=== PATIENT | male | born 1955 | race Caucasian/White ===

== ENCOUNTER 2017-09-19 06:24 | Observation (INO) ==
[2017-09-19] MEDS ORDERED: NS 1,000 ML IV ONE (06:31)
[2017-09-19] MEDS: SALINE FLUSH 10ml SYRINGE IVF PRN ×3 (06:40→08:52)
--- NOTE | 2017-09-19 06:40 | Emergency Department Report ---
General Adult HPI - General Stated complaint: poss kidney stones Time Seen by Provider: 09/19/17 06:30 Source: patient, family Mode of arrival: ambulatory Limitations: no limitations - History of Present Illness HPI narrative: 62-year-old male presents to the emergency department with a chief complaint of right sided lower abdominal discomfort. Patient noted onset of symptoms awakening him in the night. Patient has a history of multiple kidney stones in the past with similar symptoms. Patient states this feels exactly like his prior kidney stones. Patient describes his pain as severe. Pain is sharp. No radiation. He does not note any exacerbating or remitting factors. No other complaints or associated symptoms. He was at home when the symptoms began. Symptoms have been persistent in nature since onset. Denies trauma, travel, poorly prepared food, recent antibiotic use. - Related Data Home Medications Medication Instructions Recorded Confirmed Finasteride 5 mg PO DAILY #0 04/24/12 09/19/17 Aspirin 1 tab PO HS 09/19/17 09/19/17 Terazosin [Hytrin] 0 mg PO HS 09/19/17 09/19/17 Allergies Allergy/AdvReac Type Severity Reaction Status Date / Time caffeine Allergy Unknown Verified 09/19/17 06:50 codeine Allergy Unknown RASH Verified 09/19/17 06:50 morphine Allergy Unknown HALLUCINATI Verified 09/19/17 06:50 ONS NARCOTICS Allergy Unknown HALLUCINATI Uncoded 09/19/17 06:50 ONS Review of Systems Constitutional: Denies: fever, chills Eyes: Denies: eye pain, vision change ENT: Denies: ear pain, throat pain Cardiovascular: Denies: chest pain, palpitations Respiratory: Denies: cough, dyspnea Gastrointestinal: Reports: abdominal pain, nausea, vomiting (non-bloody). Denies: diarrhea Genitourinary: Denies: urgency, dysuria Musculoskeletal: Denies: back pain, arthralgia Integumentary: Denies: erythema, rash Neurological: Denies: headache, numbness Psychiatric: Denies: anxiety, depression Endocrine: Denies: fatigue, heat or cold intolerance Hematological/Lymphatic: Denies: easy bleeding, easy bruising Allergic/Immunologic: Denies: facial swelling, urticaria PFSH Patient Stated Medical History Hypertension Yes Valvular Heart Disease Yes Hx Benign Prostatic Yes Hyperplasia Hx Kidney Stones Yes Surgical History: Lithotripsy Family History: Reviewed and noncontributory. - Social History Smoking status: Never smoker Substance use type: does not use Alcohol intake frequency: does not drink Physical Exam - Limitations Limitations: no limitations - General General appearance: alert, in distress (Mild distress secondary to pain. ) - Normal Exams: Head:: Normocephalic without trauma Eyes:: Pupils are PERRLA w/ EOMI, No scleral icterus, irritation, or foreign bodies noted ENMT:: No facial trauma, nasal exudates, pharyngeal erythema, or exudates are noted Dental: No fractured, loose, or missing teeth noted Neck:: Full range of motion, without adenopathy, JVD, bruits or thyromegaly Chest/Respirations:: Clear all paige, with good airflow, and symmetry bilaterally Cardiovascular:: Regular rate and rhythm, without murmur or gallop, Pulses 2+ all extremities, capillary refill, <2 seconds all extremities Abdomen:: Bowel sounds positive, soft, non-tender, non-distended, no hepatosplenomegaly, masses or bruits noted (NO CVAT.) Lymphatic:: No lymphadenopathy, or lymphedema noted Musculoskeletal:: No tenderness, or deformity noted, good range of motion, all extremities Integumentary:: No rashes, hives, or bruising noted, hair and nails, without abnormality Neurological:: Patient is alert, and oriented, cranial nerves, motor/sensory/ cerebellar, exams w/o gross deficits, to observation Psychiatric:: Patient exhibits, appropriate attention, emotion and affect Course Vital Signs Temperature 98.1 F 09/19/17 06:25 Pulse Rate 59 L 09/19/17 06:25 Respiratory Rate 22 09/19/17 06:25 Blood Pressure 198/94 H 09/19/17 06:25 Pulse Oximetry 99 09/19/17 06:25 Temperature 98.1 F 09/19/17 06:25 Pulse Rate 71 09/19/17 09:00 Respiratory Rate 18 09/19/17 09:00 Blood Pressure 189/91 H 09/19/17 09:00 Pulse Oximetry 99 09/19/17 09:00 Medical Decision Making - [facility] Narrative Medical decision making narrative: Labs / imaging were discussed in detail with the patient and family and questions are answered. Patient is given 1 L normal saline intravenously. Patient is given 30 mg of Toradol IV 14 mg of Zofran intravenously times one with some improvement of symptoms. A long discussion is had with the patient regarding his ALLERGY profile and the patient states that he can take narcotic pain medication in small doses for a short term without hallucinating which is what he claims his allergy is. Patient is given fentanyl 50 g IV times one and then a repeat dose of 75 g IV times one was provided. Patient is discussed with Dr. Garcia who agrees to see the patient in consultation but is not available today and recommends admission to the hospitalist service. Patient is admitted to the service of Dr. Vicente after discussion with him in improved condition. No further orders from accepting or consulting physicians were in agreement with the current plan of management. Patient is admitted to the hospital in improved condition. Patient and family are in agreement with the current plan of management. - Differential Diagnosis renal stone, sbo, UTI, metabolic process - Lab Data Result diagrams: 09/19/17 06:35 09/19/17 06:35 Lab Results 09/19/17 09/19/17 09/19/17 Range/Units 06:35 06:35 07:36 WBC 7.6 (4.5-11.0) T/MM3 RBC 4.86 (4.50-5.90) M/MM3 Hgb 14.5 (13.5-17.5) GM/DL Hct 42.8 (41-53) % MCV 88.1 (80-100) UM3 MCH 29.8 (26-34) UUG MCHC 33.9 (31-37) GM/DL RDW Std Deviation 40.2 (36.9-50.2) FL Plt Count 134 (130-400) T/MM3 MPV 11.8 (9.4-12.4) UM3 Immature Gran % (Auto) 0.0 (0.0-0.5) % Neut % (Auto) 63.1 (33-66) % Lymph % (Auto) 25.1 (23-45) % [place] % (Auto) 8.0 (0-9.0) % Eos % (Auto) 3.4 (0-4) % Baso % (Auto) 0.4 (0-2) % Neut # (Auto) 4.8 (1.8-7.7) T/MM3 Lymph # (Auto) 1.9 (1-4.8) T/MM3 [place] # (Auto) 0.6 (0-0.8) T/MM3 Eos # (Auto) 0.3 (0-0.5) T/MM3 Baso # (Auto) 0.0 (0-0.2) T/MM3 Abs Immat Gran (auto) 0.00 (0.00-0.03) T/MM3 Turbidity < 20 (0-20) Sodium 142 (134-144) MEQ/L Potassium 3.7 (3.6-5) MEQ/L Chloride 109 H (98-107) MEQ/L Carbon Dioxide 19 L (22-30) MEQ/L Anion Gap 14 (5-15) MEQ/L BUN 31.0 H (9-20) MG/DL Creatinine 1.1 (0.8-1.5) MG/DL GFR Calculation 67 BUN/Creatinine Ratio 28 H (6-26) RATIO Glucose 132 H (75-110) MG/DL Calculated Osmolality 282 H (261-280) MOSM/KG Calcium 9.3 (8.4-10.2) MG/DL Total Bilirubin 0.80 (0.20-1.30) MG/DL Icterus Index < 2 (0-7) AST 36 (17-59) U/L ALT 45 (21-72) U/L Alkaline Phosphatase 70 (38-126) U/L Total Protein 7.1 (6.3-8.2) G/DL Albumin 4.2 (3.5-5.0) G/DL Globulin 2.9 (2.4-3.6) G/DL Albumin/Globulin Ratio 1.4 (1.1-2.2) RATIO Lipase 69 (23-300) U/L Specimen Hemolysis 20 (0-25) Ur Collection Type Urine, void-cc/notcc Urine Color Yellow (YELLOW) Urine Clarity Clear Urine pH 7.0 (5.0-8.0) Ur Specific [place] 1.020 (1.015-1.025) Urine Protein Negative (NEGATIVE) Urine Glucose (UA) Negative (NEGATIVE) Urine Ketones Trace A (NEGATIVE) Urine Occult Blood 3+ A (NEGATIVE) Urine Nitrate Negative (NEGATIVE) Urine Bilirubin Negative (NEGATIVE) Urine Urobilinogen 0.2 (NORMAL) EU/DL Ur Leukocyte Esterase Negative (NEGATIVE) Urine RBC 20-30 H (0-3) /HPF Urine WBC None seen (0-5) /HPF Urine Bacteria Trace H (NEGATIVE) Ur Culture Indicated? Cult not indicated - Radiology Data CT ABD/PELVIS: Numerous bilateral renal stones with a 5 mm distal right ureteral stone and hydronephrosis. Numerous small bladder stones. Disposition Clinical Impression: Kidney stone Disposition: 02 To [facility] [address] Condition: Improved Time of Disposition: 08:20 - Seen By: physician
[2017-09-19] MEDS ORDERED: ONDANSETRON 4 MG/2 ML INJECTION IVP ONE ×2 (06:44→08:42)
--- OUTSIDE RECORDS SUMMARY | 2017-09-19 06:44 | External Medical Summary | Summary of Care ---
:1955 Author Name Tereso Veloz M.D. Address [address] [place] [address] [place] [address] Care Team Providers Name Role Phone Tereso Veloz M.D. 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 Quantity: 60 Refills: 3 Tereso Veloz M.D. Started 17-Jul-2015 ActiveFinasteride 5 MG Oral Tablet TAKE 1 TABLET DAILY DIRECTED. Refills: 0 Started 17-Jul-2015 ActiveAspirin 325 MG Oral Tablet TAKE 1 TABLET DAILY. Refills: 0 Started 17-Jul-2015 ActiveCialis 5 MG Oral Tablet Take 1 tablet daily Quantity: 30 Refills: 0 Tereso Veloz M.D. Started 09-Aug-2015 ActiveLevofloxacin 250 MG Oral Tablet Take 1 tablet daily Quantity: 10 Refills: 0 Tereso Veloz M.D. Started 10-Jan-2016 ActiveTerbinafine HCl - 250 MG Oral Tablet TAKE 1 TABLET DAILY. Refills: 0 Tereso Veloz M.D. Started 17-Jan-2016 Active Allergies and Adverse Reactions Name Dates Details Caffeine Status: Active morphine Status: Active NSAIDs Status: Denied Past Medical History Name Dates Details History of BPH (benign prostatic hyperplasia) (600.00, N40.0) Status: Resolved History of Dysuria (788.1, R30.0) Status: Resolved History of Elevated PSA (790.93, R97.2) Status: Resolved History of hypertension (V12.59, Z86.79) Status: Resolved History of kidney stones (V13.01, Z87.442) Status: Resolved History of mitral valve stenosis (V12.59, Z86.79) Status: Resolved History of urinary tract infection (V13.02, Z87.440) Status: Resolved Procedures Procedure Dates Details History of Knee Arthroplasty History of Mitral Valve Repair History of Renal Lithotripsy History of Biopsy Of The Prostate Needle Procedures not documented Immunization Name Dates Details Immunizations not documented Family History Unknown Family Member Name Dates Details Family history of cerebrovascular accident (CVA) (V17.1, Z82.3) Comments: Family History Status: Active Family history of malignant neoplasm of prostate (V16.42, Z80.42) Comments : Family History Status: Active Mother Name Dates Details Family history of hypertension (V17.49, Z82.49) Status: Active Father Name Dates Details Family history of malignant neoplasm of prostate (V16.42, Z80.42) Status: Active Social History Name Dates Details Smoking StatusNever smoker Vital Signs Date Test Result Details 17-Jan-2016 13:24 BP Systolic 136 mm[Hg] Status: BP Diastolic 83 mm[Hg] Status: Heart Rate 72 /min Status: Height 73 in Status: Weight 235 lb Status: Body Mass Index Calculated 31 kg/m2 Status: Body Surface Area Calculated 2.3 m2 Status: Results Date Description Value Details Results not documented Plan of Care Planned Observations Name Dates Details Planned Goals not documented Goal Planned Encounters Appointment; Provider: Tereso Veloz On 12-Aug-2016 16:15 Appointment; Provider: Tereso Veloz On 12:00 Appointment; Provider: Tereso Veloz On 14-Jan-2016 08:30 Instructions Instructions not documented Encounters Appointment; Tereso Veloz On 17-Jan-2016 Encounter Diagnosis: Problem not documented 13:15 Appointment; Tereso Veloz On 10-Jan-2016 Encounter Diagnosis: Problem not documented 14:15 Appointment; Tereso Veloz On 09-Aug-2015 Encounter Diagnosis: Problem not documented 16:00
--- OUTSIDE RECORDS SUMMARY | 2017-09-19 06:44 | External Medical Summary | Summary of Care ---
:1955 Author Name Tereso Veloz M.D. 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 Refills: 0 Tereso Veloz M.D. Started 17-Jul-2015 ActiveFinasteride 5 MG Oral Tablet TAKE 1 TABLET DAILY DIRECTED. Refills: 0 Started 17-Jul-2015 ActiveAspirin 325 MG Oral Tablet TAKE 1 TABLET DAILY. Refills: 0 Started 17-Jul-2015 ActiveCialis 5 MG Oral Tablet Take 1 tablet daily Quantity: 30 Refills: 0 Tereso Veloz M.D. Started 09-Aug-2015 Active Allergies and Adverse Reactions Name Dates Details Caffeine Status: Active NSAIDs Status: Active Past Medical History Name Dates Details History [...] History of Biopsy Of The Prostate Needle PSA ( PROSTATE SPECIFIC ANTIGEN) 3100 Ordered:09-Aug-2015 Immunization Name Dates Details Immunizations not documented [...] smoker Vital Signs Date Test Result Details 09-Aug-2015 16:12 BP Systolic 130 mm[Hg] Status: BP Diastolic 81 mm[Hg] Status: Heart Rate 74 /min Status: Height 73 in Status: Weight 235 lb Status: Body Mass Index Calculated 31 kg/m2 Status: Body Surface Area Calculated 2.3 m2 Status: Results Date Description Value Details Results not documented Plan of Care Planned Observations Name Dates Details Planned Goals not documented Goal Planned Encounters Appointment; Provider: Tereso Veloz On 12-Aug-2016 16:15 Instructions Instructions not documented Encounters Appointment; Tereso Veloz On 09-Aug-2015 Encounter Diagnosis: Problem not documented 16:00
--- OUTSIDE RECORDS SUMMARY | 2017-09-19 06:44 | External Medical Summary | Summary of Care ---
:1955 Author Name Tereso Veloz M.D. Address [address] [place] [address] [place] [address] Care Team Providers Name Role Phone Tereso [...] m2 Status: Results Date Description Value Details 12-Aug-2015 08:49 PSA ( PROSTATE SPECIFIC ANTIGEN) 3100 PROSTATE SPECIFIC ANTIGEN 2.010 ng/mL (Better) Range: 0.000-4.000 Plan of Care Planned Observations Name Dates Details Planned Goals not documented Goal Planned Encounters Appointment; Provider: Tereso Veloz On 12-Aug-2016 16:15 Instructions Instructions not documented Encounters Appointment; Tereso Veloz On 09-Aug-2015 Encounter Diagnosis: Problem not documented 16:00
--- OUTSIDE RECORDS SUMMARY | 2017-09-19 06:44 | External Medical Summary | Summary of Care ---
:1955 Author Name Tereso Veloz M.D. Address [address] [place] [address] [place] [address] Care Team Providers Name Role Phone Tereso Veloz M.D. Unavailable Unavailable Keven Gilman Unavailable Unavailable Unavailable Unavailable Unavailable Functional Status Functional Status Health Issues Name Dates Details Functional status health issues are not documented Status: Cognitive Status Health Issues Name Dates Details Cognitive status health issues are not documented Status: Problems Name Dates Details Abnormal PSA (790.93, R97.20) Status: Active Microhematuria (599.72, R31.29) Status: Active Left ureteral stone (592.1, N20.1) Status: Active Microhematuria (599.72, R31.29) Status: Active Kidney stone on left side (592.0, N20.0) Status: Active Retained ureteral stent (V43.89, Z96.0) Status: Active Renal calculus, right (592.0, N20.0) Status: Active Hemorrhage of kidney (593.81, N28.89) Status: Active Bilateral kidney stones (592.0, N20.0) Status: Active BPH with obstruction/lower urinary tract symptoms (600.01, N40.1) Status: Active Renal hematoma, left (866.01, S37.012A) Status: Active Atypical small acinar proliferation of prostate (236.5, N42.32) Status: Active 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 Quantity: 60 Refills: 3 Cho M.D., [place] 17-Jul-2015 Active Cialis 5 MG Oral Tablet Take 1 tablet daily Quantity: 30 Refills: 0 Cho M.D., [place] 09-Aug-2015 Active Allergies and Adverse Reactions Name Dates Details Caffeine (Allergy) Status: Active morphine (Allergy) Status: Active NSAIDs (Allergy) Status: Denied Past Medical History Name Dates Details History of BPH (benign prostatic hyperplasia) (600.00, N40.0) Status: Resolved History of Dysuria (788.1, R30.0) Status: Resolved History of Elevated PSA (790.93, R97.20) Status: Resolved History of hypertension (V12.59, Z86.79) [...] of malignant neoplasm of prostate (V16.42, Z80.42) Comments: Family History Status: Active Mother Name Dates Details Family history of hypertension (V17.49, Z82.49) Status: Active Father Name Dates Details Family history of malignant neoplasm of prostate (V16.42, Z80.42) Status: Active Social History Name Dates Details - Status: Smoking Status Name Dates Details Never smoker Vital Signs Date Test Result Details 15-Jul-2016 13:53 BP Systolic 148 mm[Hg] Status: Comments: Location: ; Position: BP Diastolic 76 mm[Hg] Status: Comments: Location: ; Position: Heart Rate 51 /min Status: Comments: Location: ; Weight 225 lb Status: Body Mass Index Calculated 29.69 kg/m2 Status: Body Surface Area Calculated 2.26 m2 Status: Results Date Description Value Details 17-Jul-2016 09:07 PSA ( PROSTATE SPECIFIC ANTIGEN) 3100 PROSTATE SPECIFIC ANTIGEN 1.860 ng/mL Range: 0.000-4.000 Plan of Care Name Dates Details Planned Observations Planned Goals not documented Planned Encounters Appointment; Provider: Tereso Veloz M.D. On 29-Jul-2016 15:45 Instructions Name Dates Details Instructions not documented Encounters Appointment; Tereso Veloz M.D. On 15-Jul-2016 Encounter Diagnosis: Problem not documented 13:30 Appointment; Tereso Veloz M.D. On 01-Apr-2016 Encounter Diagnosis: Problem not documented 14:30 Appointment; Tereso Veloz M.D. On Encounter Diagnosis: Problem not documented 13:45 Appointment; Tereso Veloz M.D. On Encounter Diagnosis: Problem not documented 08:00 Appointment; Tereso Veloz M.D. On Encounter Diagnosis: Problem not documented 09:30 Appointment; Tereso Veloz M.D. On 17-Jan-2016 Encounter Diagnosis: Problem not documented 13:15 Appointment; Tereso Veloz M.D. On 10-Jan-2016 Encounter Diagnosis: Problem not documented 14:15 Appointment; Tereso Veloz M.D. On 09-Aug-2015 Encounter Diagnosis: Problem not documented 16:00
--- OUTSIDE RECORDS SUMMARY | 2017-09-19 06:44 | External Medical Summary | Summary of Care ---
:1955 Author Name Tereso Veloz M.D. Address [address] [place] [address] [place] [address] Care Team Providers Name Role Phone Tereso [...] Status: Active Microhematuria (599.72, R31.2) Status: Active Kidney stone on left side (592.0, N20.0) Status: Active Retained ureteral stent (V43.89, Z96.0) Status: Active Bilateral kidney stones (592.0, N20.0) Status: Active BPH with obstruction/lower urinary tract symptoms (600.01, N40.1) Status: Active Renal hematoma, left (866.01, S37.012A) Status: Active Medications Name Dates Details Terazosin HCl - 5 MG Oral Capsule TAKE 1 CAPSULE DAILY. Quantity: 60 Refills: 3 Tereso Veloz M.D. Started 17-Jul-2015 ActiveCialis 5 MG Oral Tablet Take 1 tablet daily Quantity: 30 Refills: 0 Tereso Veloz M.D. Started 09-Aug-2015 ActiveTerbinafine HCl - 250 MG Oral Tablet [...] 12-Aug-2016 16:15 Appointment; Provider: Tereso Veloz On 08:00 Appointment; Provider: Tereso Veloz On 12:00 Appointment; Provider: Tereso Veloz On 14-Jan-2016 08:30 Instructions Instructions not documented Encounters Appointment; Tereso Veloz On Encounter Diagnosis: Problem not documented 08:00 Appointment; Tereso Veloz On Encounter Diagnosis: Problem not documented 09:30 Appointment; Tereso Veloz On 17-Jan-2016 Encounter Diagnosis: Problem not documented 13:15 Appointment; Tereso Veloz On 10-Jan-2016 Encounter Diagnosis: Problem not documented 14:15 Appointment; Tereso Veloz On 09-Aug-2015 Encounter Diagnosis: Problem not documented 16:00
--- OUTSIDE RECORDS SUMMARY | 2017-09-19 06:44 | External Medical Summary | Summary of Care ---
:1955 Author Name Tereso Veloz M.D. Address [address] [place] [address] [place] [address] Care Team Providers Name Role Phone Tereso [...]
--- OUTSIDE RECORDS SUMMARY | 2017-09-19 06:44 | External Medical Summary | Summary of Care ---
:1955 Author Name Tereso Veloz M.D. Address [address] [place] [address] [place] [address] Care Team Providers Name Role Phone Tereso [...] ureteral stent (V43.89, Z96.0) Status: Active Renal hematoma, left (866.01, S37.012A) Status: Active Bilateral kidney stones (592.0, N20.0) [...] Refills: 0 Tereso Veloz M.D. Started 10-Jan-2016 Ended ActiveTerbinafine HCl - 250 MG Oral Tablet [...]
--- OUTSIDE RECORDS SUMMARY | 2017-09-19 06:44 | External Medical Summary | Summary of Care ---
:1955 Author Name Tereso Veloz M.D. Address [address] [place] [address] [place] [address] Care Team Providers Name Role Phone Tereso [...] urinary tract symptoms (600.01, N40.1) Status: Active Kidney stone on left side (592.0, N20.0) Status: Active Retained ureteral stent (V43.89, Z96.0) Status: Active Medications Name Dates Details Terazosin [...]
--- OUTSIDE RECORDS SUMMARY | 2017-09-19 06:44 | External Medical Summary | Summary of Care ---
:1955 Author Name Tereso Veloz M.D. 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 Started 10-Jan-2016 Active Allergies and Adverse Reactions Name Dates [...] smoker Vital Signs Date Test Result Details No Known Vitals to report Results Date Description Value Details Results not documented Plan of Care Planned Observations Name Dates Details Planned Goals not documented Goal Planned Encounters Appointment; Provider: Tereso Veloz On 12-Aug-2016 16:15 Instructions Instructions not documented Encounters Appointment; Tereso Veloz On 10-Jan-2016 Encounter Diagnosis: Problem not documented 14:15 Appointment; Tereso Veloz On 09-Aug-2015 Encounter Diagnosis: Problem not documented 16:00
--- OUTSIDE RECORDS SUMMARY | 2017-09-19 06:44 | External Medical Summary | Summary of Care ---
:1955 Author Name Tereso Veloz M.D. Address [address] [place] [address] [place] [address] Care Team Providers Name Role Phone Tereso Veloz M.D. Unavailable Unavailable Keevn Gilman Unavailable Unavailable Unavailable Unavailable Functional Status Functional [...] stone (592.1, N20.1) Status: Active Microhematuria (599.72, R31.2) Status: Active Kidney stone on left side (592.0, N20.0) Status: Active Retained ureteral stent (V43.89, Z96.0) Status: Active Bilateral kidney stones (592.0, N20.0) Status: Active BPH with obstruction/lower urinary tract symptoms (600.01, N40.1) Status: Active Renal hematoma, left (866.01, S37.012A) Status: Active Renal calculus, right (592.0, N20.0) Status: Active Medications Name Dates Details Terazosin HCl - 5 MG Oral Capsule TAKE 1 CAPSULE DAILY. Quantity: 60 Refills: 3 Cho M.D., Tereso Start 17-Jul-2015 Active Cialis 5 MG Oral Tablet Take 1 tablet daily Quantity: 30 Refills: 0 Cho M.D., Tereso Start 09-Aug-2015 Active Terbinafine HCl - 250 MG Oral Tablet TAKE 1 TABLET DAILY. Refills: 0 Cho M.D., Tereso [place] 17-Jan-2016 Active Allergies and Adverse Reactions Name [...] smoker Vital Signs Date Test Result Details 01-Apr-2016 14:31 BP Systolic 111 mm[Hg] Status: Comments: Location: ; Position: BP Diastolic 83 mm[Hg] Status: Comments: Location: ; Position: Heart Rate 62 /min Status: Comments: Location: ; Height 73 in Status: Weight 235 lb Status: Body Mass Index Calculated 31 kg/m2 Status: Body Surface Area Calculated 2.3 m2 Status: Results Date Description Value Details Results not documented Plan of Care Name Dates Details Planned Observations Planned Goals not documented Planned Encounters Appointment; Provider: Tereso Veloz M.D. On 12-Aug-2016 16:15 Instructions Name Dates Details Instructions not documented Encounters Appointment; Tereso Veloz M.D. On Encounter Diagnosis: [...]
--- OUTSIDE RECORDS SUMMARY | 2017-09-19 06:44 | External Medical Summary | Summary of Care ---
:1955 Author Name Tereso Veloz M.D. Address [address] [place] [address] [place] [address] Care Team Providers Name Role Phone Tereso [...] Needle PSA ( PROSTATE SPECIFIC ANTIGEN) 3100 Ordered: 15-Jul-2016 Immunization Name Dates Details Immunizations not documented [...] Provider: Tereso Veloz M.D. On 29-Jul-2016 15:45 Interventions Provided Labs/Procedures/ImagingPSA ( PROSTATE SPECIFIC ANTIGEN) 3100; To be Done: 15 Jul 2016 Instructions Name Dates Details Instructions not documented Encounters Appointment; Tereso Veloz M.D. On 01-Apr-2016 Encounter [...]
--- OUTSIDE RECORDS SUMMARY | 2017-09-19 06:45 | External Medical Summary | Summary of Care ---
:1955 Author Name Tereso Veloz M.D. Address [address] [place] [address] [place] [address] Care Team Providers Name Role Phone Tereso [...]
--- OUTSIDE RECORDS SUMMARY | 2017-09-19 06:45 | External Medical Summary | Summary of Care ---
:1955 Author Name Tereso Veloz M.D. Address Unavailable Unavailable , Care Team Providers Name Role Phone Magdiel Day, Tereso Unavailable Unavailable Keven Gilman Primary Care Provider [...] 12-Aug-2016 16:15 Appointment; Provider: Tereso Veloz On 27-Mar-2016 15:30 Appointment; Provider: Tereso Veloz On 12:00 Appointment; Provider: Tereso Veloz On 14-Jan-2016 08:30 Instructions Instructions not documented Encounters Appointment; Tereso Veloz On Encounter Diagnosis: Problem not documented 13:45 Appointment; Tereso Veloz On Encounter Diagnosis: Problem not documented 08:00 Appointment; Tereso Veloz On Encounter Diagnosis: Problem not documented 09:30 Appointment; Tereso Veloz On 17-Jan-2016 Encounter Diagnosis: Problem not documented 13:15 Appointment; Tereso Veloz On 10-Jan-2016 Encounter Diagnosis: Problem not documented 14:15 Appointment; Tereso Veloz On 09-Aug-2015 Encounter Diagnosis: Problem not documented 16:00
--- OUTSIDE RECORDS SUMMARY | 2017-09-19 06:45 | External Medical Summary | Summary of Care ---
:1955 Author Name Tereso Veloz M.D. Address [address] [place] [address] [place] [address] Care Team Providers Name Role Phone Tereso Veloz M.D. Unavailable Unavailable Keven Gilman Unavailable Unavailable Unavailable Unavailable Functional Status Functional Status Health Issues Name Dates Details Functional status health issues are not documented Status: Cognitive Status Health Issues Name Dates Details Cognitive status health issues are not documented Status: Problems Name Dates Details Microhematuria (599.72, R31.29) Status: Active Left ureteral stone (592.1, N20.1) Status: Active Microhematuria (599.72, R31.29) Status: Active Kidney stone on left side (592.0, N20.0) Status: Active Retained ureteral stent (V43.89, Z96.0) Status: Active Renal calculus, right (592.0, N20.0) Status: Active Hemorrhage of kidney (593.81, N28.89) Status: Active 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.84, N52.9) Status: Active Bilateral kidney stones (592.0, N20.0) Status: Active BPH with obstruction/lower urinary tract symptoms (600.01, N40.1) Status: Active 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, 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) Status: Resolved History of Renal hematoma, left (866.01, S37.012A) Status: Resolved History of Abnormal PSA (790.93, R97.20) Status: Resolved Medications Name Dates Details Terazosin HCl - 5 MG Oral Capsule Take one capsule by mouth daily Quantity: 60 Refills: 2 Cho M.D.Tereso 29-Jul-2016 Active Cialis 5 MG Oral Tablet Take 1 tablet daily Quantity: 30 Refills: 0 Cho M.D.Tereso 09-Aug-2015 Active Allergies and Adverse Reactions Name Dates Details Caffeine (Allergy) Status: Active morphine (Allergy) Status: Active NSAIDs (Allergy) Status: Denied Past Medical History Name Dates Details History of Abnormal PSA (790.93, R97.20) Status: Resolved 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, 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) Status: Resolved History of BPH (benign prostatic hyperplasia) (600.00, N40.0) Status: Resolved History of Dysuria (788.1, R30.0) Status: Resolved History of Elevated PSA (790.93, R97.20) Status: Resolved History of hypertension (V12.59, Z86.79) Status: Resolved History of kidney stones (V13.01, Z87.442) Status: Resolved History of mitral valve stenosis (V12.59, Z86.79) Status: Resolved History of Renal hematoma, left (866.01, S37.012A) Status: Resolved History of urinary tract infection [...] smoker Vital Signs Date Test Result Details 29-Jul-2016 15:54 BP Systolic 138 mm[Hg] Status: Comments: Location: ; Position: BP Diastolic 77 mm[Hg] Status: Comments: Location: ; Position: Heart Rate 60 /min Status: Comments: Location: ; 15-Jul-2016 13:53 BP Systolic 148 mm[Hg] Status: [...] Details Planned Observations Planned Goals not documented Instructions Name Dates Details Instructions not documented [...]
[2017-09-19] MEDS ORDERED: KETOROLAC 30 MG/ML INJECTION IVP ONE (07:07)
[2017-09-19] MEDS ORDERED: FentaNYL 100 MCG/2 ML INJECTION IVP ONE ×2 (07:50→08:41)
[2017-09-19 09:20] VITALS: BMI 30.5
[2017-09-19] MEDS ORDERED: FentaNYL 100 MCG/2 ML INJECTION IVP PRN ×2 (09:33→09:49)
[2017-09-19] MEDS ORDERED: ONDANSETRON 4 MG/2 ML INJECTION IVP PRN (09:34)
--- NOTE | 2017-09-19 09:50 | History & Physical Report ---
History of Present Illness Date: 09/19/17 Chief complaint: sudden abdominal pain HPI: Radha Marquez is a 62 y/o male with a hx of kidney stones. He woke up at 0530 this am with RLQ pain, typical of kidney stone pain. He states that his pain is always in his lower abdomen, and not to his flank. He has been nauseated with dry heaving, shaking, and feeling chilled. He denies gross hematuria or dysuria. He also has a hx of Mnire's disease and often feels lightheaded but doesn't have attacks very often (spinning/vertigo). However, narcotics tend to cause more vertigo and he typically likes to avoid them. Ione has been tolerated in the past. He denies sweating, fever, constipation or diarrhea. He is on the tail end of a long "cold" but is mostly better from this. His remarked about an abdominal "rash", which has been present for a while, and she stated that when he sits up he has a large part in the middle of his abdomen that raises up. He's also had chronic intermittent LLQ/side since kidney stone procedure with complication of subscapular hematoma in 2016. He denies dyspnea, chest pain, leg swelling, palpitations, headache, neurologic symptoms. He presented to [facility] ED for evaluation. CT renal protocol showed b/l kidney stones with large 11 mm stone in distal pole of right kidney; and moderate to severe right sided hydronephrosis and moderate hydroureter secondary to 5 mm ureteral stone. He received IVF, Zofran, Fentanyl, and Toradol with little relief of pain. UA was positive for RBC but not indicative of UTI. WBC was normal. Chemistries were stable. Dr. Garcia and Dr. Rodriguez were both contacted and the patient was admitted to observation status for symptom control and urologic evaluation. Review of Systems All systems PM: 10-point ROS was reviewed, no additional remarkable complaints except - Constitutional Constitutional: Present: as per HPI - EENMT Eyes: Absent: change in vision Balance: Present: as per HPI Nose: Present: as per HPI Mouth/Throat: Present: as per HPI. Absent: sore throat - Cardiovascular Cardiovascular: Present: as per HPI Vascular: Present: see HPI - Respiratory Respiratory: Present: as per HPI - Gastrointestinal Gastrointestinal: Present: as per HPI - Genitourinary Genitourinary: Present: as per HPI - Musculoskeletal Musculoskeletal: Absent: back pain, muscle weakness - Integumentary/Breasts Integumentary: Present: as per HPI - Neurological Neurological: Present: as per HPI - Psychiatric Psychiatric: Absent: anxiety, depression - Endocrine Endocrine: Present: as per HPI - Allergic/Immunologic Allergic/Immunologic: Absent: seasonal rhinorrhea Past Medical History HTN Mnire's BPH OA Kidney stones Obesity with BMI 30.5 Left sided hearing loss Surgical History: ESWL with stent and subsequent removal for left kidney stone in January, by Dr. Veloz. This was complicated with a postop subscapular hematoma that was managed conservatively. Mitral valve repair in 2005. Cervical fusion. Right knee reconstruction. Family History Updates: Mother - uterine cancer. Father - prostate cancer. Also positive for heart disease. - Social History Smoking status: Never smoker Substance use type: does not use Alcohol intake frequency: does not drink Household members: spouse Current occupational status: employed Current occupation: team truck driver - [employer] Social history: Moved from [place] to [place] 2 weeks ago, but came back to [place] to prepare their house for showing. PCP is Dr. Gilman. He hasn't established with a PCP in [place] yet. Medications Home Medications Medication Instructions Recorded Confirmed Type Finasteride 5 mg PO DAILY #0 04/24/12 09/19/17 History Aspirin 1 tab PO HS 09/19/17 09/19/17 History Terazosin [Hytrin] 0 mg PO HS 09/19/17 09/19/17 History Allergies Allergy/AdvReac Type Severity Reaction Status Date / Time caffeine Allergy Unknown Verified 09/19/17 06:50 codeine Allergy Unknown RASH Verified 09/19/17 06:50 morphine Allergy Unknown HALLUCINATI Verified 09/19/17 06:50 ONS NARCOTICS Allergy Unknown HALLUCINATI Uncoded 09/19/17 06:50 ONS Exam Vital Signs: Temperature 96.8 F 09/19/17 09:25 Pulse Rate 55 L 09/19/17 09:25 Respiratory Rate 16 09/19/17 09:25 Blood Pressure 187/91 H 09/19/17 09:25 Pulse Oximetry 100 09/19/17 09:25 Height/Weight/BMI: Height 1.85 m Weight 105 kg Body Mass Index 30.5 - Constitutional Present: moderate distress (in pain), well nourished, well developed - Routine HEENT Exam Head: Present: normocephalic Eye: Present: PERRL. Absent: conjunctival icterus, scleral injection ENT: Present: mucous membranes moist, oropharynx clear, dentition normal - Routine Neck Exam Present: supple - Routine Respiratory Exam Present: CTA bilaterally - Routine Cardiovascular Exam Present: RRR, S1, S2 - Routine Abdominal Exam Present: soft, normoactive bowel sounds, tenderness (RLQ - mild), non distended , hernia (large midline hernia seen when rectus is activated) - Routine Extremities Exam Present: no edema, pulses intact, normal capillary refill - Routine Skin Exam Present: intact, dry, warm Comments: oneal angiomas to trunk - Routine Neurological Exam Present: alert, oriented X3, CN II-XII intact, normal speech - Routine Psychiatric Exam Present: normal thought process, cooperative Results - Labs CBC & Chem 7: 09/19/17 06:35 09/19/17 06:35 - Imaging and Cardiology CT scan - abdomen Status: image reviewed by me Additional comments: b/l kidney stones with large 11 mm stone in distal pole of right kidney moderate to severe right sided hydronephrosis and moderate hydroureter secondary to 5 mm ureteral stone Assessment and Plan (1) Calculus of kidney Current visit: Yes Status: Acute Assessment and Plan: IMPRESSION Intractable pain and nausea secondary to moderate to severe right sided hydronephrosis and moderate hydroureter secondary to 5 mm ureteral stone b/l kidney stones with large 11 mm stone in distal pole of right kidney HTN Mnire's - exacerbated by narcotics BPH OA Kidney stones Obesity with BMI 30.5 Left sided hearing loss PLAN Admit, obs status, under the hospitalist service. Dr. Garcia has been consulted and plans to eval pt tomorrow am. Will make NPO at midnight. Strain urine. Hold daily ASA. Pain control will be challenging. He has tolerated hydrocodone in the past but typically prefers to avoid narcotics d/t exacerbation of Mnire's. He was starting to exhibit some symptoms of Mnire's following administration of fentanyl in ED. Valium was ordered to help with vertigo. Will have fentanyl, Ione, and Toradol available prn. Could also try Stadol but there is a risk of decreased efficacy of opioids with this medication. Nausea returned as well - will add Reglan as a backup antiemetic to Zofran. Continue IVF: NS at 100 mL/hr. BP is elevated - resume Hytrin but suspect high BP is a pain response. Discussed with Dr. Rodriguez. DVT Prophylaxis: SCD's Resuscitation Status: Full Code - Physician Narrative Physician: Dario Rodriguez MD Narrative: Date: 09/19/17 Time: 1500 Have independently interviewed and examined pt. Chart reviewed. Case discussed with ED physician and my MUSIC LIBRARY ASSISTANT. Care plan developed with my supervision; agree with above. Presents to ED for evaluation of acute flank pain and nausea. Has long history of kidney stones. Pain not as severe as has been in pain, but his nausea is complete unmanageable. Symptoms onset acutely this am. Not able to keep anything down prior to arrival. Lungs: clear CV: regular AB: BS present MSE: awake alert Assessment: Renal colic, Renal stones, intractable nausea and pain, hyperglycemia - likely stress response Plan: OBS admission. Control pain/nausea. IVF for hydration. Urological consult for definitive procedure. SCD. Hold ASA. Monitor lab. Care to return to Dr Gilman at time of discharge from [facility]. Hospital Course Summary Disclaimer: The visit summary below is not to be considered part of the above Progress Note. Hospital Course: 09/19/17 Admit, obs status, under the hospitalist service. Dr. Garcia has been consulted and plans to eval pt tomorrow am. Will make NPO at midnight. Strain urine. Hold daily ASA. Pain control will be challenging. He has tolerated hydrocodone in the past but typically prefers to avoid narcotics d/t exacerbation of Mnire's. He was starting to exhibit some symptoms of Mnire's following administration of fentanyl in ED. Valium was ordered to help with vertigo. Will have fentanyl, Ione, and Toradol available prn. Could also try Stadol but there is a risk of decreased efficacy of opioids with this medication. Nausea returned as well - will add Reglan as a backup antiemetic to Zofran. Continue IVF: NS at 100 mL/hr. BP is elevated - resume Hytrin but suspect high BP is a pain response.
[2017-09-19] MEDS: NS 1,000 ML IV SCH ×2 (10:01→19:41)
[2017-09-19] MEDS: HYDROCODONE/APAP 10 MG/325 MG TABLET PO PRN ×2 (10:01→10:57)
[2017-09-19] MEDS ORDERED: DIAZEPAM 5 MG TABLET PO PRN ×2 (10:47→12:34)
[2017-09-19] MEDS ORDERED: HYDROCODONE/APAP 5mg/325mg TABLET PO PRN (11:07)
[2017-09-19] MEDS ORDERED: METOCLOPRAMIDE 10mg/2ml INJECTION IVP PRN (11:28)
[2017-09-19] MEDS ORDERED: HYDROCODONE/APAP 7.5 MG/325 MG TABLET PO PRN (12:05)
[2017-09-19] MEDS ORDERED: BUTORPHANOL 2 MG/ML INJECTION IVP PRN (12:08)
[2017-09-19] MEDS ORDERED: POLYETHYL GLYCOL 3350 17gm PACKET PO PRN (12:34)
[2017-09-19] MEDS: KETOROLAC 30 MG/ML INJECTION IVP PRN (16:10)
--- NOTE | 2017-09-19 16:50 | CT Scan Report ---
EXAM: CT abdomen pelvis wo con DATE: 09/19/2017 12:00 AM ENCOUNTER: Initial INDICATION: R Flank Pain COMPARISON: 07/29/2016, 01/23/2016 TECHNIQUE: Noncontrast axial CT images were obtained of the abdomen and pelvis. Coronal and sagittal reformatted images were performed. The current CT scan was performed using radiation dose-reduction techniques. FINDINGS: Lower Chest: The visualized portions of the lower lungs are aerated. No focal airspace disease. The heart is normal in size without pericardial effusion. Abdomen: No intraperitoneal free air. No intra-abdominal free fluid or fluid collections. No lymphadenopathy. Liver: The noncontrast liver demonstrates homogeneous attenuation without focal masses. Gallbladder and biliary: The gallbladder appears grossly normal. No biliary ductal dilatation. Spleen: The noncontrast spleen appears grossly normal. Pancreas: The pancreas demonstrates homogeneous attenuation. Adrenal glands: The adrenal glands are normal in size and attenuation. Kidneys/ureters: Moderate right hydroureteronephrosis secondary to a 5 mm obstructing distal ureteral stone. Additional nonobstructing bilateral renal stones seen, right more numerous and larger than left. The noncontrast left kidney appears otherwise grossly normal. The left ureter is normal in course and caliber. GI tract: The small bowel and colon appear grossly normal. The appendix is normal in caliber. Vascular structures: The aorta is normal in course and caliber with mild aortoiliac atherosclerotic calcifications noted. Pelvis: No pelvic free fluid. No pelvic lymphadenopathy. Calcified pelvic phleboliths. Bladder: Several small stones are seen layering within the posterior bladder. The bladder appears otherwise normal. Genital system: The prostate and seminal vesicles appear grossly normal. Skeletal Structures and Soft Tissues: No acute osseous or soft tissue abnormality identified. Degenerative spondylosis of the visualized spine, most pronounced at L5-S1. Impression: 1. Moderate right hydroureteronephrosis secondary to a 5 mm obstructing stone within the distal right ureter. 2. Additional nonobstructing bilateral nephrolithiasis, right more numerous and larger than left. 3. Several small stones seen layering within the bladder. The above report concurs with the preliminary report provided by [facility] at 8:00 AM. .
[2017-09-19] MEDS: TERAZOSIN 1 MG CAPSULE PO SCH (20:24)
[2017-09-19] MEDS: FINASTERIDE 5 MG TABLET PO SCH (20:24)
[2017-09-19] MEDS: SENNA + DOCUSATE TABLET PO SCH (20:24)
[2017-09-19] MEDS: TAMSULOSIN 0.4 MG CAPSULE PO SCH (20:24)
[2017-09-20] MEDS: NS 1,000 ML IV SCH ×2 (06:02→21:23)
[2017-09-20] MEDS: KETOROLAC 30 MG/ML INJECTION IVP PRN ×2 (07:28→21:50)
[2017-09-20] MEDS: FINASTERIDE 5 MG TABLET PO SCH (08:11)
[2017-09-20] MEDS: SENNA + DOCUSATE TABLET PO SCH ×2 (08:11→21:42)
--- NOTE | 2017-09-20 09:35 | Progress Note ---
- Date 09/20/17 Subjective: Mr Marquez is seen today in follow up. His pain has been well controlled overnight and he denies having any nausea. urinary output is overall diminished 75-100ml with each void. Noted Animal Therapist increased to 1.9 on morning labs. Objective Vital signs: Temperature 96.3 F L 09/20/17 07:32 Pulse Rate 60 09/20/17 07:32 Respiratory Rate 18 09/20/17 07:32 Blood Pressure 145/85 H 09/20/17 07:32 Pulse Oximetry 99 09/20/17 07:32 Height/Weight/BMI: Height 1.85 m Weight 109.6 kg Body Mass Index 30.5 - Constitutional Present: no acute distress, well nourished, well developed - Routine HEENT Exam Eye: Present: EOMI ENT: Present: mucous membranes moist, dentition normal - Routine Respiratory Exam Present: CTA bilaterally. Absent: wheezes - Routine Cardiovascular Exam Present: RRR, S1, S2. Absent: murmur - Routine Abdominal Exam Present: soft, non distended. Absent: normoactive bowel sounds (hypoactive), tenderness - Routine Extremities Exam Present: full ROM, normal capillary refill - Routine Skin Exam Present: intact, dry, warm - Routine Neurological Exam Present: alert, oriented X3, CN II-XII intact, moving all extremities - Routine Lymphatic Exam Lymphatic: Absent: adenopathy - Routine Psychiatric Exam Present: normal affect, cooperative Results - Labs CBC & Chem 7: 09/20/17 04:23 09/20/17 04:23 Assessment and Plan (1) Calculus of kidney Current visit: Yes Status: Acute Assessment and Plan: IMPRESSION Intractable pain and nausea secondary to moderate to severe right sided hydronephrosis and moderate hydroureter secondary to 5 mm ureteral stone b/l kidney stones with large 11 mm stone in distal pole of right kidney HTN Mnire's - exacerbated by narcotics BPH OA Kidney stones Obesity with BMI 30.5 Left sided hearing loss PLAN Planning on Dr. Garcia seeing patient today in consult, possible surgical intervention later today Currently NPO Strain all urine, continue finasteride and Flomax Fentanyl, Elwood, Toradol for pain control Valium as needed for Mnire's/ vertigo Monitor renal function Animal Therapist increased to 1.9, likely secondary to renal obstruction Case discussed with attending, Dr Rodriguez DVT Prophylaxis: SCD's Resuscitation Status: Full Code - Physician Narrative Physician: Dario Rodriguez MD Narrative: Date: 09/20/17 Time: 1844 Have independently interviewed and examined pt. Chart reviewed. Case discussed with CM and my PR MANAGER. Care plan developed with my supervision; agree with above. Groggy this evening. Just back from his urologic procedure. Glad it went well. Encourage about Dr Garcia's skills - prior to procedure, was expecting need for several more interventions. However, stones were removed from his bladder and ureter, stent placed, and a few stones where 'blasted.' Reports he will need to see Dr Garcia in 2 weeks for reevaluation. Does note some mild nausea post procedure, but feels hungry. Pain controlled. Lungs: clear bilaterally CV: regular MSE: groggy, but interactive. Plan: will continue with supportive care-with procedure finishing so late it is not reasonable for patient to discharge tonight. Will continue with IVF as creatinine showed increase this morning-likely with stent placement his renal function will improve. Control post op pain/nausea. Recheck lab in am. Encouraged patient did well with procedure. Hospital Course Summary Disclaimer: The visit summary below is not to be considered part of the above Progress Note. Hospital Course: 09/19/17 Admit, obs status, under the hospitalist service. Dr. Garcia has been consulted and plans to eval pt tomorrow am. Will make NPO at midnight. Strain urine. Hold daily ASA. Pain control will be challenging. He has tolerated hydrocodone in the past but typically prefers to avoid narcotics d/t exacerbation of Mnire's. He was starting to exhibit some symptoms of Mnire's following administration of fentanyl in ED. Valium was ordered to help with vertigo. Will have fentanyl, Elwood, and Toradol available prn. Could also try Stadol but there is a risk of decreased efficacy of opioids with this medication. Nausea returned as well - will add Reglan as a backup antiemetic to Zofran. Continue IVF: NS at 100 mL/hr. BP is elevated - resume Hytrin but suspect high BP is a pain response. 09/20/[address] Garcia seeing patient today in consult, possible surgical intervention later today Currently NPO Strain all urine, continue finasteride and Flomax Fentanyl, Elwood, Toradol for pain control Valium as needed for Mnire's/ vertigo Monitor renal function Animal Therapist increased to 1.9, likely secondary to renal obstruction Case discussed with attending, Dr Rodriguez
[2017-09-20] MEDS ORDERED: NS 1,000 ML IV SCH (13:45)
[2017-09-20] MEDS ORDERED: CEFAZOLIN 1 G INJECTION IVP ONE (13:48)
[2017-09-20] MEDS ORDERED: FentaNYL 250 MCG/5 ML INJECTION ONE (14:19)
--- NOTE | 2017-09-20 14:19 | Anesthesia Preoperative Report ---
Anesthesia Preoperative Record - Date and Time Date: 09/20/17 Preoperative Diagnosis: kidney stones and intractable pain NPO Since Date: 09/19/17 NPO Since Time: 00:00 Allergies/Adverse Reactions: Allergies Allergy/AdvReac Type Severity Reaction Status Date / Time caffeine Allergy Unknown Verified 09/19/17 06:50 codeine Allergy Unknown RASH Verified 09/19/17 06:50 morphine Allergy Unknown HALLUCINATI Verified 09/19/17 06:50 ONS NARCOTICS Allergy Unknown HALLUCINATI Uncoded 09/19/17 06:50 ONS - Vital Signs Vital Signs: Temperature 96.3 F L 09/20/17 07:32 Pulse Rate 60 09/20/17 07:32 Respiratory Rate 18 09/20/17 07:32 Blood Pressure 145/85 H 09/20/17 07:32 Pulse Oximetry 99 09/20/17 07:32 Height and Weight: Height 1.85 m Weight 109.6 kg Body Mass Index 30.5 - Medications Inpatient Medications: Current Medications Hydrocodone Bitart/Acetaminophen ([place] 7.5/325) 1 - 2 tab PO Q4H PRN PRN Reason: Pain Last Admin: 09/19/17 23:28 Dose: 1 tab Diazepam (Valium) 5 mg PO Q6HR PRN PRN Reason: vertigo Fentanyl (Fentanyl) 75 - 100 mcg IVP Q2H PRN PRN Reason: Pain Last Admin: 09/19/17 10:02 Dose: 75 mcg Finasteride (Proscar) 5 mg PO DAILY [facility] Last Admin: 09/20/17 08:11 Dose: Not Given Sodium Chloride (Normal Saline) 1,000 mls @ 100 mls/hr IV .Q10H [facility] Last Admin: 09/20/17 06:02 Dose: 100 mls/hr Sodium Chloride (Normal Saline) 1,000 mls @ 50 mls/hr IV .Q20H [facility] Ketorolac Tromethamine (Toradol Inj) 30 mg IVP Q6H PRN PRN Reason: Pain Stop: 09/24/17 12:15 Last Admin: 09/20/17 07:28 Dose: 30 mg Magnesium Hydroxide (Mom) 30 ml PO DAILY PRN PRN Reason: Constipation Metoclopramide HCl (Reglan) 5 - 10 mg IVP Q6H PRN Last Admin: 09/19/17 11:33 Dose: 10 mg Ondansetron HCl (Zofran) 4 mg IVP Q6H PRN PRN Reason: Nausea Polyethylene Glycol (Miralax) 17 gm PO DAILY PRN Senna/Docusate Sodium (Senna Plus Tablet) 1 tab PO BID [facility] Last Admin: 09/20/17 08:11 Dose: Not Given Sodium Chloride (Iv Flush) 10 - 80 ml IVF PRN PRN PRN Reason: Flushing Last Admin: 09/19/17 08:52 Dose: 10 ml Tamsulosin HCl (Flomax) 0.4 mg PO [facility] Last Admin: 09/19/17 20:24 Dose: 0.4 mg Terazosin HCl (Hytrin) 1 mg PO [facility] Last Admin: 09/19/17 20:24 Dose: 1 mg Home Medications: Home Medications Medication Instructions Recorded Confirmed Type Finasteride 5 mg PO DAILY #0 04/24/12 09/19/17 History Aspirin 1 tab PO 09/19/17 09/19/17 History Terazosin [Hytrin] 0 mg PO 09/19/17 09/19/17 History Is Patient on Beta Steffen?: No - Medical History Respiratory: Reports: Sleep Apnea (cpap at home) Cardiovascular: Reports: Hypertension, Valvular Heart Disease (s/p mitral valve repair) Gastrointestional: Reports: Nausea or Vomiting Present Neuro/Musculoskeletal: Reports: HX.MS.OSAR, Back Problems Other History: Reports: Anesthesia Reactions (reports nausea) - Surgical History Cardiac Surgeries/Treatments: Reports: Valve Replacement (mitral valve repaired 2005) Respiratory Surgery/Treatments: Reports: CPAP Use Surgery/Treatment: REPORT: Other (LASER KIDNEY SURGERY LEFT) Musculoskeletal Surgery/Tx: Reports: Other (herniated disc surgery, right knee ACL repaired) Anesthesia Reactions: None Hx Family Anesthesia Reaction: No History of Motion Sickness: No - Social History Smoking Status: Never smoker Hx Chewing Tobacco Use: No Second Hand Exposure: No Substance Use Type: does not use Alcohol Intake Frequency: does not drink - Pertinent Findings Laboratory: CBC and BMP 09/20/17 04:23 09/20/17 04:23 BMP 09/20/17 04:23 Sodium 140 Potassium 3.8 Chloride 108 H Carbon Dioxide 24 BUN 30.0 H Creatinine 1.9 H D Glucose 97 Calcium 8.4 D - Physical Exam Respiratory Exam: Present: lungs clear Cardiovascular Exam: Present: regular rate and rhythm - Airway Assessment Mallampati Score: I TMD: 3 Fingerbreadths Neck Extension: fair Teeth: chipped teeth/crowns Overall Assessment: no airway concerns - ASA ASA Score: 2 - Plan Anesthesia: General Inhalation Gases - Discussion Discussion: Discussed risks/options/alternatives of anesthesia and questions answered. Patient consents. Nursing pain assessment noted. Present for Discussion: family member Attestation Statement: Prior to the delivery of any anesthetic medication, I examined the patient, developed the plan, obtained the patient's consent and discussed the risk and benefits of the procedure with the patient/guardian. - Additional Information Seen by Anesthesia: Yes
[2017-09-20] MEDS ORDERED: DEXAMETHASONE 4 MG/ML INJECTION ONE (14:20)
[2017-09-20] MEDS ORDERED: ONDANSETRON 4 MG/2 ML INJECTION ONE (14:20)
[2017-09-20] MEDS ORDERED: PROPOFOL 20 ML ONE (14:20)
[2017-09-20] MEDS ORDERED: PROPOFOL 0 MG/0 ML VIAL ONE (16:09)
[2017-09-20] MEDS ORDERED: IOHEXOL 300mg/ml 50ml INJECTION ONE (16:19)
[2017-09-20] MEDS ORDERED: FentaNYL 100 MCG/2 ML INJECTION IVP PRN (16:25)
[2017-09-20] MEDS ORDERED: ONDANSETRON 4 MG/2 ML INJECTION IVP PRN (16:25)
[2017-09-20] MEDS ORDERED: EPHEDRINE 50mg/ml INJECTION ONE (16:52)
[2017-09-20] MEDS ORDERED: SALINE FLUSH 10ml SYRINGE ONE (16:52)
[2017-09-20] MEDS ORDERED: IOHEXOL 300mg/ml 50ml INJECTION OPSITE ONE (17:02)
[2017-09-20] MEDS ORDERED: FentaNYL 100 MCG/2 ML INJECTION ONE (17:25)
[2017-09-20] MEDS ORDERED: LIDOCAINE 2% JELLY (Urojet) 20ml MM ONE (17:27)
--- NOTE | 2017-09-20 18:24 | Anesthesia Postoperative Note ---
- Date and Time Date: 09/20/17 Time: 18:20 - Status Patient Participated in Evaluation: Patient Participated in Person Vital Signs: Temperature 96.3 F L 09/20/17 18:10 Pulse Rate 60 09/20/17 18:10 Respiratory Rate 16 09/20/17 18:10 Blood Pressure 155/82 H 09/20/17 18:10 Pulse Oximetry 97 09/20/17 18:10 Respiratory Function: Airway Patent, Regular Respirations Cardiovascular Function: Regular Pulse Mental Status: Alert and Oriented Pain Intensity: 0 Hydration: IV Infusing Complications During Recover: None Apparent - Follow-Up Instructions Instructions: Per Surgeon
[2017-09-20] MEDS ORDERED: BISACODYL 10 MG SUPPOSITORY RECTALLY PRN (18:45)
[2017-09-20] MEDS: TAMSULOSIN 0.4 MG CAPSULE PO SCH (21:43)
[2017-09-20] MEDS: TERAZOSIN 1 MG CAPSULE PO SCH (21:43)
[2017-09-21] MEDS: FINASTERIDE 5 MG TABLET PO SCH (08:04)
[2017-09-21] MEDS: SENNA + DOCUSATE TABLET PO SCH (08:04)
[2017-09-21] MEDS: NS 1,000 ML IV SCH (08:05)
--- NOTE | 2017-09-21 08:16 | Operative Note ---
DATE OF PROCEDURE 09/20/2017 PREOPERATIVE DIAGNOSES 1. Bladder stones. 2. Right ureteral stone. 3. Right kidney stone. PROCEDURE PERFORMED 1. Cystolitholapaxy of stones, less than 2 cm. 2. Right retrograde pyelogram. 3. Right ureteroscopy with laser lithotripsy. 4. Right stent placement. PRIMARY SURGEON Jose Garcia MD RADIOLOGIC FINDINGS Right retrograde pyelogram showed severe right hydronephrosis. DRAINS 6 x 26 right double-J stent. INDICATION FOR THE PROCEDURE This is a 62-year-old patient with the history of multiple stones in the past who was admitted to [facility] yesterday for a 5 mm right distal ureteral stone. CAT scan also showed multiple small stones in the bladder and multiple stones in the right kidney, the largest being a 1.1 cm stone in the right lower pole. The patient was seen today and after discussion of his options he elected to go to the OR for cystolitholapaxy and right ureteroscopy laser lithotripsy. DESCRIPTION OF THE PROCEDURE The patient was identified in the preoperative holding area. The procedure was explained to him and he agreed to proceed. He was taken back to the operating room where he was placed supine on the operating table. General anesthesia was induced. He was then placed in the dorsal lithotomy position. His genitalia were prepped and draped in the usual fashion. At this time a formal time-out was done. All the persons in the room were in agreement. I began the procedure by introducing a rigid cystoscope inside the bladder. The patient has an enlarged prostate with a small median lobe. The bladder was severely trabeculated. The two UOs were orthotopic in position. Inside the bladder the patient had multiple small stones. Those were evacuated with the cystoscope. After multiple washouts, all the stones were evacuated from the bladder. At this time I turned my attention to the right ureter. A 5-Spanish ureteral catheter was used to intubate the right UO. I then placed a wire through the 5-Spanish and advanced it to the right kidney. As soon as I placed the wire in the right UO, I noticed two small stones that migrated out from the right ureter. I then emptied the bladder and removed my cystoscope. I then introduced my rigid ureteroscope alongside the wire inside the bladder. I was able to introduce may rigid ureteroscope in the distal ureter. I didn't identify any stones in the distal ureter. It appeared that the stones passed when I placed the wire. At this point I started to perform flexible ureteroscopy and take care of the stones in the right kidney. The rigid ureteroscope was removed. A ureteral access sheath was placed over the wire and under fluoro guidance advanced to the level of the proximal ureter. I then removed the wire and introduced my flexible ureteroscope with the access sheath. The ureteroscope was advanced all the way up to the right kidney. In the mid pole of the right kidney I identified a large stone. This was lasered using the holmium laser fiber into several small fragments. I then directed my attention to the lower pole of the kidney. In the lower pole the patient had three stones, two small ones and one large one that corresponded to the 1.1 cm stone on the CAT scan. I lasered the stone also using a holmium laser fiber fragmenting them into several small fragments. After about one hour of lasering, I decided to stop the procedure and place a stent. This was to avoid extended surgery time since the patient will likely need a second procedure anyway due to his large stone burden. The flexible ureteroscope was removed. The wire was replaced in the right kidney. The access sheath was removed. The scope was reintroduced in the bladder and a 6 x 26 double-J stent was placed over this wire and under fluoro guidance advanced to the level of the right kidney. The wire was then removed and I observed a nice curl of the stent in the kidney and in the bladder. The bladder was emptied. This concluded the procedure. DISPOSITION The patient will be discharged home tomorrow. He will follow up with me in two weeks with a KUB. If he has a significant amount of residual stones left, we will plan for a second-look ureteroscopy to clear the region of stones. SILVERIO
--- NOTE | 2017-09-21 09:35 | Progress Note ---
- Date 09/21/17 Subjective: F/U: Renal stones, hydronephrosis Doing well this morning. Not having flank pain. Does not discomfort with urination. Passing blood in urine (expected). No nausea, eating well. Has been up some-not feeling unsteady when up. Breathing well. Feels much better in general. Objective Vital signs: Temperature 96.3 F L 09/21/17 07:19 Pulse Rate 52 L 09/21/17 07:19 Respiratory Rate 16 09/21/17 07:19 Blood Pressure 153/77 H 09/21/17 07:19 Pulse Oximetry 96 09/21/17 07:19 Height/Weight/BMI: Height 1.85 m Weight 110.6 kg Body Mass Index 30.5 - Constitutional Present: no acute distress, well nourished, well developed, average body habitus , cooperative - Routine HEENT Exam Head: Present: normocephalic, atraumatic Eye: Present: EOMI, PERRL ENT: Present: mucous membranes moist - Routine Respiratory Exam Present: CTA bilaterally. Absent: respiratory distress, rhonchi, wheezes, crackles - Routine Cardiovascular Exam Present: RRR, no murmur - Routine Abdominal Exam Present: soft, normoactive bowel sounds, non distended, non tender. Absent: guarding - Routine Extremities Exam Present: no edema, pulses intact. Absent: cyanosis, clubbing - Routine Musculoskeletal Exam Musculoskeletal: Present: no clubbing or cyanosis, normal strength - Routine Skin Exam Present: dry, warm - Routine Neurological Exam Present: alert, oriented X3, CN II-XII intact, moving all extremities, vision grossly intact, hearing grossly intact, normal speech. 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 Pain controlled. Eating well. Respiratory status stable. Stent placed yesterday. Will discharge to home. [place] and Zofran as needed for pain/nausea. Does not need to be on antibiotics, but Dr Garcia recommending changing terazosin to Flomax. Follow up with Dr Garcia in 2 weeks - will have KUB at that time secondary to stone burden. Patient in process of establishing new PCP in [place] as has relocated there. See orders for details. Case discussed with patient and his . Questions answered. Time spent with patient care and discharge greater than 30 minutes. DVT Prophylaxis: SCD's Resuscitation Status: Full Code - Physician Narrative Physician: Dario Rodriguez MD Narrative: Date: 09/21/17 Time: 0932 Hospital Course Summary Disclaimer: The visit summary below is not to be considered part of the above Progress Note. Hospital Course: 09/19/17 Admit, obs status, under the hospitalist service. Dr. Garcia has been consulted and plans to eval pt tomorrow am. Will make NPO at midnight. Strain urine. Hold daily ASA. Pain control will be challenging. He has tolerated hydrocodone in the past but typically prefers to avoid narcotics d/t exacerbation of Mnire's. He was starting to exhibit some symptoms of Mnire's following administration of fentanyl in ED. Valium was ordered to help with vertigo. Will have fentanyl, [place], and Toradol available prn. Could also try Stadol but there is a risk of decreased efficacy of opioids with this medication. Nausea returned as well - will add Reglan as a backup antiemetic to Zofran. Continue IVF: NS at 100 mL/hr. BP is elevated - resume Hytrin but suspect high BP is a pain response. 09/20/17 - OP DAY Planning on Dr. Garcia seeing patient today in consult, possible surgical intervention later today. Currently NPO for procedure. Strain all urine, continue finasteride and Flomax. Fentanyl, [place], Toradol for pain control. Valium as needed for Mnire's/ vertigo. Monitor renal function [employer] increased to 1.9, likely secondary to renal obstruction. Evaluated by Dr Garcia: PROCEDURE PERFORMED 1. Cystolitholapaxy of stones, less than 2 cm. 2. Right retrograde pyelogram. 3. Right ureteroscopy with laser lithotripsy. 4. Right stent placement. Delay in having procedure performed due to equipment issues. Back to room at about 1800. Still very groggy from procedure. Will continue with supportive care. Patient not ready for discharge to home at this time. 09/21/17 Clinically improved. Pain controlled. Eating well. Respiratory status stable. Stent placed yesterday. Will discharge to home. [place] and Zofran as needed for pain/nausea. Does not need to be on antibiotics, but Dr Garcia recommending changing terazosin to Flomax. Follow up with Dr Garcia in 2 weeks - will have KUB at that time secondary to stone burden. Patient in process of establishing new PCP in [place] as has relocated there. See orders for details.
--- NOTE | 2017-09-21 10:20 | Discharge Summary ---
Discharge Information Date of admission: 09/19/17 08:30 Anticipated date of discharge: 09/21/17 Attending Physician: Dario Rodriguez MD Primary care physician: Dr Gilman Consults: Physician Consult: Jose Garcia Reason For Exam: Bilaterally kidney stones - Discharge Diagnosis (1) Calculus of kidney Status: Acute Discharge diagnosis Intractable pain and nausea secondary to moderate to severe right sided hydronephrosis and moderate hydroureter secondary to 5 mm ureteral stone Associated conditions and complications Bilateral kidney stones with large 11 mm stone in distal pole of right kidney Moderate to severe right sided hydronephrosis and moderate hydroureter secondary to 5 mm ureteral stone Bladder stones HTN Mnire's - exacerbated by narcotics BPH OA Prior history of Kidney stones DEIRDRE Obesity with BMI 30.5 Left sided hearing loss - Procedures Procedures: DATE OF PROCEDURE: 09/20/2017 PREOPERATIVE DIAGNOSES 1. Bladder stones. 2. Right ureteral stone. 3. Right kidney stone. PROCEDURE PERFORMED 1. Cystolitholapaxy of stones, less than 2 cm. 2. Right retrograde pyelogram. 3. Right ureteroscopy with laser lithotripsy. 4. Right stent placement. PRIMARY SURGEON: Jose Garcia MD - Laboratory Labs: Admit Lab 09/19/17 06:35 WBC 7.6 Hgb 14.5 Hct 42.8 MCV 88.1 Plt Count 134 Neut % (Auto) 63.1 Lymph % (Auto) 25.1 [place] % (Auto) 8.0 Eos % (Auto) 3.4 Baso % (Auto) 0.4 Admit Lab 09/19/17 06:35 Sodium 142 Potassium 3.7 Chloride 109 H Carbon Dioxide 19 L Anion Gap 14 BUN 31.0 H Creatinine 1.1 GFR Calculation 67 BUN/Creatinine Ratio 28 H Glucose 132 H Calculated Osmolality 282 H Calcium 9.3 Total Bilirubin 0.80 AST 36 ALT 45 Alkaline Phosphatase 70 Total Protein 7.1 Albumin 4.2 Globulin 2.9 Albumin/Globulin Ratio 1.4 Lipase 69 Urine Tests 09/19/17 07:36 Urine Color Yellow Urine Clarity Clear Ur Specific [place] 1.020 Urine Ketones Trace A Urine Occult Blood 3+ A Urine Nitrate Negative Ur Leukocyte Esterase Negative Urine RBC 20-30 H Urine WBC None seen 09/21/17 04:22 09/21/17 04:22 Pending Labo 09/20/17 17:17 Stone Source Pending Stone Constituent 1 Pending - Radiology Radiology: Date of Exam: 09/19/17 EXAM: CT abdomen pelvis wo con FINDINGS: Lower Chest: The visualized portions of the lower lungs are aerated. No focal airspace disease. The heart is normal in size without pericardial effusion. Abdomen: No intraperitoneal free air. No intra-abdominal free fluid or fluid collections. No lymphadenopathy. Liver: The noncontrast liver demonstrates homogeneous attenuation without focal masses. Gallbladder and biliary: The gallbladder appears grossly normal. No biliary ductal dilatation. Spleen: The noncontrast spleen appears grossly normal. Pancreas: The pancreas demonstrates homogeneous attenuation. Adrenal glands: The adrenal glands are normal in size and attenuation. Kidneys/ureters: Moderate right hydroureteronephrosis secondary to a 5 mm obstructing distal ureteral stone. Additional nonobstructing bilateral renal stones seen, right more numerous and larger than left. The noncontrast left kidney appears otherwise grossly normal. The left ureter is normal in course and caliber. GI tract: The small bowel and colon appear grossly normal. The appendix is normal in caliber. Vascular structures: The aorta is normal in course and caliber with mild aortoiliac atherosclerotic calcifications noted. Pelvis: No pelvic free fluid. No pelvic lymphadenopathy. Calcified pelvic phleboliths. Bladder: Several small stones are seen layering within the posterior bladder. The bladder appears otherwise normal. Genital system: The prostate and seminal vesicles appear grossly normal. Skeletal Structures and Soft Tissues: No acute osseous or soft tissue abnormality identified. Degenerative spondylosis of the visualized spine, most pronounced at L5-S1. Impression: 1. Moderate right hydroureteronephrosis secondary to a 5 mm obstructing stone within the distal right ureter. 2. Additional nonobstructing bilateral nephrolithiasis, right more numerous and larger than left. 3. Several small stones seen layering within the bladder. History of Present Illness HPI: Radha Marquez is a 62 y/o male with a hx of kidney stones. He woke up at 0530 this am with RLQ pain, typical of kidney stone pain. He states that his pain is always in his lower abdomen, and not to his flank. He has been nauseated with dry heaving, shaking, and feeling chilled. He denies gross hematuria or dysuria. He also has a hx of Mnire's disease and often feels lightheaded but doesn't have attacks very often (spinning/vertigo). However, narcotics tend to cause more vertigo and he typically likes to avoid them. [place] has been tolerated in the past. He denies sweating, fever, constipation or diarrhea. He is on the tail end of a long "cold" but is mostly better from this. His remarked about an abdominal "rash", which has been present for a while, and she stated that when he sits up he has a large part in the middle of his abdomen that raises up. He's also had chronic intermittent LLQ/side since kidney stone procedure with complication of subscapular hematoma in 2016. He denies dyspnea, chest pain, leg swelling, palpitations, headache, neurologic symptoms. He presented to [facility] ED for evaluation. CT renal protocol showed b/l kidney stones with large 11 mm stone in distal pole of right kidney; and moderate to severe right sided hydronephrosis and moderate hydroureter secondary to 5 mm ureteral stone. He received IVF, Zofran, Fentanyl, and Toradol with little relief of pain. UA was positive for RBC but not indicative of UTI. WBC was normal. Chemistries were stable. Dr. Garcia and Dr. Rodriguez were both contacted and the patient was admitted to observation status for symptom control and urologic evaluation. For complete details of the H&P refer to that document. Objective Vital signs: Temperature 96.3 F L 09/21/17 07:19 Pulse Rate 52 L 09/21/17 07:19 Respiratory Rate 16 09/21/17 07:19 Blood Pressure 153/77 H 09/21/17 07:19 Pulse Oximetry 96 09/21/17 07:19 Height/Weight/BMI: Height 1.85 m Weight 110.6 kg Body Mass Index 30.5 Hospital Course This is a general summary of the patient's hospital course. For more details refer to the complete medical record. Hospital course: 09/19/17 Admit, obs status, under the hospitalist service. Dr. Garcia has been consulted and plans to eval pt tomorrow am. Will make NPO at midnight. Strain urine. Hold daily ASA. Pain control will be challenging. He has tolerated hydrocodone in the past but typically prefers to avoid narcotics d/t exacerbation of Mnire's. He was starting to exhibit some symptoms of Mnire's following administration of fentanyl in ED. Valium was ordered to help with vertigo. Will have fentanyl, [place], and Toradol available prn. Could also try Stadol but there is a risk of decreased efficacy of opioids with this medication. Nausea returned as well - will add Reglan as a backup antiemetic to Zofran. Continue IVF: NS at 100 mL/hr. BP is elevated - resume Hytrin but suspect high BP is a pain response. 09/20/17 - OP DAY Planning on Dr. Garcia seeing patient today in consult, possible surgical intervention later today. Currently NPO for procedure. Strain all urine, continue finasteride and Flomax. Fentanyl, [place], Toradol for pain control. Valium as needed for Mnire's/ vertigo. Monitor renal function Biologist Aide increased to 1.9, likely secondary to renal obstruction. Evaluated by Dr Garcia: PROCEDURE PERFORMED 1. Cystolitholapaxy of stones, less than 2 cm. 2. Right retrograde pyelogram. 3. Right ureteroscopy with laser lithotripsy. 4. Right stent placement. Delay in having procedure performed due to equipment issues. Back to room at about 1800. Still very groggy from procedure. Will continue with supportive care. Patient not ready for discharge to home at this time. 09/21/17 Clinically improved. Pain controlled. Eating well. Respiratory status stable. Stent placed yesterday. Will discharge to home. [place] and Zofran as needed for pain/nausea. Does not need to be on antibiotics, but Dr Garcia recommending changing terazosin to Flomax. Follow up with Dr Garcia in 2 weeks - will have KUB at that time secondary to stone burden. Patient in process of establishing new PCP in [place] as has relocated there. See orders for details. Time spent with patient: discharge greater than 30 minutes Resuscitation Status: Full Code Discharge Plan - Discharge Disposition Discharge Date: 09/21/17 Disposition: Discharged Home, Self-Care *Condition: Stable Reason For Visit (Visit label in EMR): kidney stones and intractable pain - Discharge Medications *Discharge Medications: New Ondansetron HCl 4 mg PO Q6HR PRN #20 tab PRN Reason: Nausea Tamsulosin [Flomax] 0.4 mg PO HS #30 cap Hydrocodone/APAP 7.5/325 [[place] 7.5/325] 1 - 2 tab PO Q4H PRN #30 tab PRN Reason: Pain Continue Finasteride 5 mg PO DAILY #0 Discontinued Terazosin [Hytrin] 0 mg PO HS Aspirin 1 tab PO HS - Discharge Packet/Instructions *Diet: Regular *Activity: As tolerated *Pain Management/Treatment: Tylenol/[place] as needed *Wound Care: N/A Additional Instructions: Use Flomax instead of Terazosin. Hold on using aspirin due to blood in urine and stents. *Expected Signs/Symptoms: Decreasing urinary pain and blood. *Notify Physician if: Temp >100.4. Intractable pain/nausea *During Business Hours Contact: Dr Garcia for urological care. Dr Gilman for primary care until you establish local primary provider. *After Business Hours Contact: Call [facility] and have your care provider contacted. *Pending Lab/Results: Follow up w/Provider (Stone analysis) - Referrals/Follow Up *Referrals/Follow Up: Jose Garcia MD [Physician] - (Follow up in [address] Garcia's office will call you for appointment. ) - Patient Handouts Patient Handouts: Kidney Stones (DC), Lithotripsy (DC) - Dismissal Complete Discharge Instructions are:: Complete Physician Narrative - Narrative Physician: Dario Rodriguez MD Attestation Narrative: Date: 09/21/17 Time: 1017 I have independently interviewed and examined patient prior to discharge. See my progress note from today for details. Medically stable for discharge to home.
--- NOTE | 2017-09-21 10:27 | Remote Fluorsocopy Report ---
Indication: RETROGRADE W/ STENT INSERTION PROCEDURE: RF retrograde pyelogram RT: Encounter: Initial Comparison: CT abdomen dated September 19, 2017 Findings: Single fluoroscopic spot image shows the proximal portion of a right-sided double-J stent. Impression: Fluoroscopy as above. Please see the dictated procedural note for further details. Fluoroscopy time is 49 seconds. Fluoroscopy dose is 1850 mRad. .
[2017-09-21 11:26] VITALS: BP 147/77; PULSE 55; RESP 14; TEMP 96.9; O2SAT 97
== END 2017-09-21 12:15 | disposition home or self-care (01) ==
LOC: SRG 06:24 → ED 06:24 → SRG 09:13
PROVIDERS: ADMIT Hospitalist; ATTEND Hospitalist